=== PATIENT | male | born 1995 | race Caucasian/White ===

== ENCOUNTER 2022-08-02 08:35 | Emergency (ER) | payer OTHER ==
[~2022-08-02] VITALS: Ht 170.2 cm; Wt 81.6 kg
[2022-08-02 08:45] VITALS: BP 171/97
--- NOTE | 2022-08-02 09:00 | NUR ---
BIB PD FOR MEDICAL CLEARANCE AND REMOVAL OF TASER.
--- NOTE | 2022-08-02 09:01 | NUR ---
Patient discharged with v/s stable. Written and verbal after care instructions given and explained. Patient verbalized understanding. Police with steady gait. All questions addressed prior to discharge. Advised to follow up with PMD.
== END 2022-08-02 09:01 ==
LOC: MED 08:35
DX: S00.81XA Abrasion of other part of head, initial encounter (principal); S80.212A Abrasion, left knee, initial encounter; S80.211A Abrasion, right knee, initial encounter; W86.8XXA Exposure to other electric current, initial encounter; Y93.89 Activity, other specified; Y92.89 Other specified places as the place of occurrence of the external cause; Y99.8 Other external cause status
CPT/HCPCS: 99283

== ENCOUNTER 2022-08-04 19:00 | Emergency (ER) | payer OTHER ==
[~2022-08-04] VITALS: Ht 177.8 cm; Wt 84.4 kg
--- NOTE | 2022-08-04 19:03 | NUR ---
Patient was wheelchair assisted to bed 8
[2022-08-04 19:06] VITALS: BP 164/81
--- NOTE | 2022-08-04 19:13 | NUR ---
PT REPORTS METH USE
--- NOTE | 2022-08-04 19:26 | NUR ---
Report given to RG Farris for transfer of care.
--- NOTE | 2022-08-04 19:33 | NUR ---
pt's parents lyric
[2022-08-04] MEDS ORDERED: ATA25 PO (20:11)
--- NOTE | 2022-08-04 21:16 | NUR ---
Patient discharged with v/s stable. Written and verbal after care instructions given and explained. Patient alert, oriented and verbalized understanding of instructions. Ambulatory with by parent. All questions addressed prior to discharge. ID band removed. Patient advised to follow up with PMD. Rx of hydroxyzine hydrochloride given. Opportunity to ask questions provided and answered. Dr. Perdomo orders reinforced
== END 2022-08-04 21:16 | disposition home or self-care (01) ==
LOC: MED 19:00
DX: R53.1 Weakness (principal); F12.10 Cannabis abuse, uncomplicated; Z79.899 Other long term (current) drug therapy
CPT/HCPCS: 93005; 99283